=== PATIENT | female | born 1990 | race Caucasian/White ===

== ENCOUNTER 2020-08-05 04:19 | Emergency (ER) | payer SELFPAY ==
[~2020-08-05] VITALS: Ht 165.1 cm; Wt 72.6 kg
[2020-08-05 04:23] VITALS: BP 109/62
--- NOTE | 2020-08-05 04:27 | NUR ---
To ED bed 06
--- NOTE | 2020-08-05 05:08 | NUR ---
30 Y/O FEMALE CAME TO THE ED C/O LOWER BACK PAIN X 1 WEEK. PT STATES THAT "SHE FEELS LIKE THAT MY TAMPON GOT STUCKED INTO MY VAGINA. I TRIED PULLING THE STRING, BUT I COULDN'T PULL IT. I TRIED PUTTING ANOTHER TAMPON, BUT I FEEL BLOCKAGE IN THERE. THIS HAPPENED A MONTH AGO." [facility]: DENIES
--- NOTE | 2020-08-05 05:10 | NUR ---
ACCOMPANIED ERMD AT BEDSIDE FOR PELVIC EXAM
--- NOTE | 2020-08-05 05:30 | NUR ---
PATIENT ELOPED FROM FACILITY. DISCHARGE INSTRUCTIONS NOT GIVEN TO PATIENT. DR. RADFORD NOTIFIED.
[2020-08-05 05:38] VITALS: BP 109/62
--- NOTE | 2020-08-05 16:58 | NUR ---
ATTEMPT MADE TO CALL PATIENT'S PRIMARY PHONE # AND NEXT OF KIN PHONE # AND BOTH NUMBERS ARE DISCONNECTED. DR. RADFORD MADE AWARE.
== END 2020-08-05 05:30 | disposition left against medical advice (07) ==
LOC: MED 04:19
DX: R10.2 Pelvic and perineal pain (principal); F11.90 Opioid use, unspecified, uncomplicated; F15.90 Other stimulant use, unspecified, uncomplicated; Z98.890 Other specified postprocedural states
CPT/HCPCS: 87210; 99283